=== PATIENT | male | born 1965 | race Caucasian/White ===

== ENCOUNTER → 2018-07-18 | Outpatient (CLI) | payer BC ==
--- NOTE | 2018-07-18 08:50 | RAD ---
Lumbar spine, 5 views, 07/18/2018: HISTORY: Back pain There is a transitional-type vertebra at the lumbosacral junction which will be considered to be a partially lumbarized S1 segment. Utilizing this numbering system there is a small accessory rib on the left at L1. The lowest visible disc space is considered to be L5-S1. It is markedly narrowed with endplate sclerosis and marginal spurring. There is a lesser degree of disc space narrowing at the other levels with moderate marginal spurs throughout the remainder of the lumbar and lower thoracic spine. There is moderate facet joint arthropathy, particularly in the lower lumbar spine. No acute fracture or subluxation is evident. IMPRESSION: 1. Moderate to severe multilevel degenerative change, greatest at the L5-S1 level. 2. No acute bony abnormality is detected. Electronically signed by: Hardy Ardon MD (07/18/2018 8:47 AM) [facility]
--- NOTE | 2018-07-18 08:51 | RAD ---
Thoracic spine, 3 views, 07/18/2018: HISTORY: Back pain There is a mild thoracic scoliosis. Moderate multilevel marginal spurring is present, particularly in the mid and lower thoracic spine. No fracture or dislocation is identified. The paraspinous soft tissues are unremarkable. IMPRESSION: 1. Moderate multilevel hypertrophic degenerative change. 2. No acute bony abnormality is detected. Electronically signed by: Hardy Ardon MD (07/18/2018 8:48 AM) [facility]
== END | disposition home or self-care (01) ==
LOC: PMG 07:52
PROVIDERS: ATTEND Physician Assistant Medical
DX: M47.897 Other spondylosis, lumbosacral region (principal); M12.88 Other specific arthropathies, not elsewhere classified, other specified site; M48.061 Spinal stenosis, lumbar region without neurogenic claudication; M48.04 Spinal stenosis, thoracic region; M41.84 Other forms of scoliosis, thoracic region; M47.894 Other spondylosis, thoracic region; M46.04 Spinal enthesopathy, thoracic region
CPT/HCPCS: 72072; 72110